=== PATIENT | male | born 1985 | race Hispanic/Latino ===

== ENCOUNTER 2024-08-16 02:22 | Inpatient (IN) | payer SELFPAY ==
[2024-08-16] MEDS ORDERED: FUROSEMIDE 40 MG/4 ML VIAL ONE ×2 (02:47→09:16)
[2024-08-16 03:04] LABS: Absolute Lymphocytes (CBC) 2.6 K/uL (0.7-4.9); Absolute Monocytes 0.4 K/uL (0.1-1.3); Absolute Neutrophil 2.4 K/uL (1.8-8.0); Basophils % 0.8 % (0-1.3); Eosinophils % 0.8 % (0-4.4); Hematocrit 40.5 % (39.6-49.0); Hemoglobin 13.8 g/dL (13.6-17.9); Lymphocytes % 47.6 % (15.3-44.8); MCH 29.7 pg (27.0-35.0); MCHC 34.2 g/dL (32.0-36.0); MCV 86.8 fL (80-100); Monocytes % 7.3 % (3.3-12.3); Neutrophils % 43.5 % (41.7-73.7); Nucleated Red Blood Cells % 0.1 % (0-0); Platelets 236 thou/uL (152-406); RBC Red Blood Cell Count 4.67 M/uL (4.33-5.43); Red Cell Distribution Width 13.8 % (12.1-15.2)
[2024-08-16 03:15] LABS: Albumin/Globulin Ratio 0.8 (1.1-1.8); Anion Gap 9.9 mEq/L (5.0-15.0); Bilirubin Direct 0.2 mg/dL (0-0.2); Bilirubin Indirect, Calculated 0.3 mg/dL (0.2-0.8); Bilirubin Total 0.5 mg/dL (0.2-1.0); Globulin 3.9 g/dL (2.3-3.5); Potassium 3.9 mEq/L (3.5-5.1); Protein, Total 6.9 g/dL (6.4-8.2)
[2024-08-16 03:34] LABS: Troponin High Sensitivity 76.4 pg/mL (<58.9)
--- NOTE | 2024-08-16 04:42 | ER ---
Nurse's Notes [facility] Name: Willie Bryson Age: 39 yrs Sex: Male : 1985 Arrival Date: 08/16/2024 Time: 02:22 Bed 24 Private MD: Diagnosis: CHF exacerbation;Elevated troponin Presentation: 08/16 02:40 Chief complaint: Patient states: I have been feeling short of breath and my legs have vc1 been swelling for the last 3 days. Coronavirus screen: Client denies travel out of the [place] in the last 14 days. At this time, the client does not indicate any symptoms associated with coronavirus-19. Ebola Screen: Patient negative for fever greater than or equal to 101.5 degrees Fahrenheit, and additional compatible Ebola Virus Disease symptoms Patient denies exposure to infectious person. Patient denies travel to an Ebola-affected area in the 21 days before illness onset. No symptoms or risks identified at this time. Initial Sepsis Screen: Does the patient meet any 2 criteria? No. Patient's initial sepsis screen is negative. Does the patient have a suspected source of infection? No. Patient's initial sepsis screen is negative. Risk Assessment: Do you want to hurt yourself or someone else? Patient reports no desire to harm self or others. Onset of symptoms was August 13, 2024. 02:40 Method Of Arrival: Ambulatory vc1 02:40 Acuity: DIAN 3 vc1 Triage Assessment: 02:45 General: Appears in no apparent distress. uncomfortable, Behavior is calm, cooperative, vc1 appropriate for age. Pain: Complains of pain in right leg and left leg Aggravated by repositioning, weight bearing, Also complains of shortness of breath. EENT: No deficits noted. No signs and/or symptoms were reported regarding the EENT system. Neuro: Level of Consciousness is awake, alert, obeys commands, Oriented to person, place, time, situation, Appropriate for age. Cardiovascular: Reports shortness of breath, Denies chest pain, Capillary refill < 3 seconds Patient's skin is warm and dry. Cardiovascular: Edema to bilateral legs, non pitting. Respiratory: Reports shortness of breath at rest Airway is patent Respiratory effort is even, unlabored, Respiratory pattern is regular, symmetrical, the patient has mild shortness of breath. GI: Abdomen is round non-distended. : No deficits noted. No signs and/or symptoms were reported regarding the genitourinary system. Derm: Skin is intact, is healthy with good turgor, Skin is dry, Skin is normal, Skin temperature is warm. Musculoskeletal: Circulation, motion, and sensation intact. Range of motion: intact in all extremities, Swelling present in right leg and left leg. Historical: - Allergies: 02:42 No Known Allergies; vc1 - Home Meds: 02:53 paroxetine HCl 20 mg oral tablet daily [Active]; insulin glargine 100 unit/mL (3 mL) vc1 Sub-Q Insulin Pen 10 units every evening for type 1 diabetes mellitus [Active]; metoprolol succinate 100 mg oral Tablet, Extended Release 24 hr 1.5 tabs daily [Active]; losartan 50 mg oral tablet [Active]; nitroglycerin 0.4 mg SL Tablet, Sublingual 1 tab every 5 to 15 minutes [Active]; - PMHx: 02:43 Congestive heart failure; diabetes mellitus; Hypertensive disorder; kd3 02:42 Hypertensive disorder; Diabetes mellitus; Congestive heart failure; vc1 - PSHx: 02:42 None; vc1 - Immunization history:: Adult Immunizations up to date, Client reports having NOT received the Covid vaccine. Flu vaccine is not up to date. - Infectious Disease History:: Denies. Denies. - Social history:: Smoking status: Patient/guardian denies using tobacco, the patient reports quitting approximately 1 years ago. Screenin:44 [facility] ED Fall Risk Assessment (Adult) History of falling in the last 3 months, kd3 including since admission No falls in past 3 months (0 pts) Confusion or Disorientation No (0 pts) Intoxicated or Sedated No (0 pts) Impaired Gait No (0 pts) Mobility Assist Device Used No (0 pt) Altered Elimination No (0 pt) Score/Fall Risk Level 0 - 2 = Low Risk Oriented to surroundings. Abuse screen: Denies threats or abuse. Denies injuries from another. Nutritional screening: No deficits noted. Tuberculosis screening: No symptoms or risk factors identified. Assessment: 02:43 General: Appears uncomfortable, Behavior is calm, cooperative. Pain: Complains of pain kd3 in chest. Neuro: Level of Consciousness is awake, alert, obeys commands, Oriented to person, place, time, situation. Cardiovascular: Patient's skin is warm and dry. Respiratory: Airway is patent Trachea midline Respiratory effort is even, unlabored, Respiratory pattern is regular, symmetrical. 03:15 General: Pt placed on 2 L nasal canula for comfort due to high anxiety rt SOB. Pt is 97 kd3 percent on RA. . 04:33 General: Provider is at the bedside attempting to speak to the patient. Patient is kd3 sitting up in the stretcher, eyes closed, respirations are even and unlabored, VSS, pt is groaning and currently not verbally responding. . Vital Signs: 02:40 BP 146 / 87; Pulse 107; Resp 20; Temp 97.8; Pulse Ox 98% ; Weight 108.86 kg; Height 5 vc1 ft. 11 in. ; 03:23 BP 138 / 105; Pulse 98; Resp 20; Pulse Ox 95% on 2 lpm NC; kd3 04:28 BP 154 / 99; Pulse 89; Resp 19; Pulse Ox 98% on 2 lpm NC; kd3 04:43 BP 127 / 85; Pulse 91; Resp 17; Pulse Ox 100% on 2 lpm NC; dd2 05:36 BP 137 / 97; Pulse 86; Resp 18; Pulse Ox 97% on 2 lpm NC; dd2 02:40 Body Mass Index 33.47 (108.86 kg, 180.34 cm) vc1 ED Course: 02:26 Patient arrived in ED. gm2 02:28 Sathish Aguirre MD is Attending Physician. rt 02:42 Triage completed. vc1 02:42 Jennifer Ocasio, RN is Primary Nurse. kd3 02:44 Arm band placed on left wrist. vc1 02:44 Initial lab(s) drawn, by id, sent to lab. EKG done, by ED staff, reviewed by Sathish Aguirre MD. Inserted saline lock: 20 gauge in right antecubital area, using aseptic technique. Blood collected. Flushed with 10 mL NS. 02:47 Patient has correct armband on for positive identification. Bed in low position. Call vc1 light in reach. Provided Education on: call light. administrative officer on. Pulse ox on. NIBP on. 02:50 Troponin HS Sent. kd3 02:50 NT PRO-BNP Sent. kd3 02:50 LFT's Sent. kd3 02:50 Basic Metabolic Panel Sent. kd3 02:50 CBC with Diff Sent. kd3 03:23 XRAY Chest (1 view) In Process Unspecified. EDMS 04:41 Marva Boothe MD is Hospitalizing Provider. rt 07:05 Primary Nurse role handed off by Jennifer Ocasio, MOE bd Administered Medications: 02:50 Drug: Furosemide IVP 40 mg IVP once; give over 2 minutes Route: IVP; Site: right kd3 antecubital; 05:44 Follow up: Response: No adverse reaction kd3 04:46 Drug: Aspirin PO 325 mg PO once Route: PO; dd2 05:44 Follow up: Response: No adverse reaction kd3 Medication: 02:48 VIS not applicable for this client. vc1 Outcome: 04:41 Decision to Hospitalize by Provider. rt 14:58 Patient left the ED. ll1 Signatures: Dispatcher [employer] EDMS Isabell Mason Lynsay, RN RN ll1 Jennifer Ocasio RN RN kd3 Suad Goodwin RN RN vc1 Sathish Aguirre MD MD rt Radha Johansen gm2 RAULITO BATISTA RN RN dd2 Corrections: (The following items were deleted from the chart) 04:31 04:29 General: kd3 kd3 04:33 03:15 General: Pt placed on 2 L nasal canula for comfort due to high anxiety rt SOB. . kd3 kd3
--- NOTE | 2024-08-16 04:42 | EDPHYS ---
Physician Documentation [facility] [place], [place] Name: Willie Bryson Age: 39 yrs Sex: Male : 1985 Arrival Date: 08/16/2024 Time: 02:22 Bed 24 Private MD: ED Physician Sathish Aguirre HPI: 08/16 03:02 This 39 yrs old Male presents to ER via Ambulatory with complaints of Leg Swelling, rt Feet Swelling. 03:02 Patient with history of congestive heart failure presents to the ED with dyspnea, rt worsening edema to the bilateral lower extremities. The patient had a recent admission to outside hospital for fluid, pneumonia. Left the hospital by 5 days ago, states that has been progressively worsening. He is not currently taking Lasix, has been sometime since he took Lasix. Denies other acute complaints at this time, symptoms are moderate in severity, no other aggravating or alleviating factors.. Historical: - Allergies: 02:42 No Known Allergies; vc1 - Home Meds: 02:53 paroxetine HCl 20 mg oral tablet daily [Active]; insulin glargine 100 unit/mL (3 mL) vc1 Sub-Q Insulin Pen 10 units every evening for type 1 diabetes mellitus [Active]; metoprolol succinate 100 mg oral Tablet, Extended Release 24 hr 1.5 tabs daily [Active]; losartan 50 mg oral tablet [Active]; nitroglycerin 0.4 mg SL Tablet, Sublingual 1 tab every 5 to 15 minutes [Active]; - PMHx: 02:43 Congestive heart failure; diabetes mellitus; Hypertensive disorder; kd3 02:42 Hypertensive disorder; Diabetes mellitus; Congestive heart failure; vc1 - PSHx: 02:42 None; vc1 - Immunization history:: Adult Immunizations up to date, Client reports having NOT received the Covid vaccine. Flu vaccine is not up to date. - Infectious Disease History:: Denies. Denies. - Social history:: Smoking status: Patient/guardian denies using tobacco, the patient reports quitting approximately 1 years ago. ROS: 03:03 Constitutional: Negative for fever, chills, and weight loss, Abdomen/GI: Negative for rt abdominal pain, nausea, vomiting, diarrhea, and constipation, Skin: Negative for injury, rash, and discoloration, Neuro: Negative for headache, weakness, numbness, tingling, and seizure, 03:03 Cardiovascular: Positive for edema, Negative for chest pain, 03:03 Respiratory: Positive for cough, shortness of breath, Exam: 03:03 Constitutional: This is a well developed, well nourished patient who is awake, alert, rt and in no acute distress. Head/Face: Normocephalic, atraumatic. Chest/axilla: Normal chest wall appearance and motion. Nontender with no deformity. No lesions are appreciated. Cardiovascular: Regular rate and rhythm with a normal S1 and S2. No gallops, murmurs, or rubs. Normal PMI, no JVD. No pulse deficits. Abdomen/GI: Soft, non-tender, with normal bowel sounds. No distension or tympany. No guarding or rebound. No evidence of tenderness throughout. Skin: Warm, dry with normal turgor. Normal color with no rashes, no lesions, and no evidence of cellulitis. Neuro: Awake and alert, GCS 15, oriented to person, place, time, and situation. Cranial nerves II-XII grossly intact. Motor strength 5/5 in all extremities. Sensory grossly intact. Cerebellar exam normal. Normal gait. 03:03 Respiratory: Bibasilar crackles, no respiratory distress, 03:03 Musculoskeletal/extremity: 2+ bilateral lower extremity edema. 03:04 ECG was reviewed by the Attending Physician. rt Vital Signs: 02:40 BP 146 / 87; Pulse 107; Resp 20; Temp 97.8; Pulse Ox 98% ; Weight 108.86 kg; Height 5 vc1 ft. 11 in. ; 03:23 BP 138 / 105; Pulse 98; Resp 20; Pulse Ox 95% on 2 lpm NC; kd3 04:28 BP 154 / 99; Pulse 89; Resp 19; Pulse Ox 98% on 2 lpm NC; kd3 04:43 BP 127 / 85; Pulse 91; Resp 17; Pulse Ox 100% on 2 lpm NC; dd2 05:36 BP 137 / 97; Pulse 86; Resp 18; Pulse Ox 97% on 2 lpm NC; dd2 02:40 Body Mass Index 33.47 (108.86 kg, 180.34 cm) vc1 MDM: 02:31 Medical Screening Exam initiated rt 04:49 Differential Diagnosis CHF, pneumonia, elevated troponin. Data reviewed: vital signs, rt nurses notes. Consideration of Admission/Observation Patient was admitted/placed on observation. Management of patient was discussed with the following: Hospitalist: Agrees to admit. I considered the following discharge prescriptions or medication management in the emergency department Medications were administered in the Emergency Department. See MAR. Independent interpretation of the following test(s) in the Emergency Department X-Ray: My interpretation is Pulmonary edema seen on my interpretation of x-ray images. Test considered but Not performed: CT: Low suspicion for pulmonary embolus, CT angiogram not indicated. Care significantly affected by the following chronic conditions: Congestive Heart Failure. Counseling: I had a detailed discussion with the patient and/or guardian regarding the historical points, exam findings, and any diagnostic results supporting the discharge/admit diagnosis, lab results, radiology results, the need for further work-up and treatment in the hospital. Response to treatment: the patient's symptoms have mildly improved after treatment. 04 02:42 Order name: Basic Metabolic Panel; Complete Time: 03:46 rt 08/16 02:42 Order name: CBC with Diff; Complete Time: 03:46 rt 08/16 02:42 Order name: LFT's; Complete Time: 03:46 rt 08/16 02:42 Order name: NT PRO-BNP; Complete Time: 03:46 rt 08/16 02:42 Order name: Troponin HS; Complete Time: 03:46 rt 08/16 06:00 Order name: Basic Metabolic Panel EDMS 08/16 06:00 Order name: C-Reactive Protein EDMS 08/16 06:00 Order name: CBC with Automated Diff EDMS 08/16 06:00 Order name: Magnesium EDMS 08/16 06:00 Order name: Troponin High Sensitivity EDMS 08/16 06:04 Order name: Urine Drug Screen EDMS 08/16 06:41 Order name: Glucose, Ancillary Testing EDMS 08/16 07:05 Order name: Basic Metabolic Panel EDMS 08/16 07:05 Order name: Magnesium EDMS 08/16 07:42 Order name: Glucose, Ancillary Testing EDMS 08/16 02:42 Order name: XRAY Chest (1 view) rt 08/16 06:00 Order name: Echo with Doppler EDMS 08/16 02:42 Order name: EKG; Complete Time: 02:43 rt 08/16 06:00 Order name: CONS Physician Consult EDMS 08/16 02:42 Order name: Cardiac monitoring; Complete Time: 02:43 rt 04 02:42 Order name: EKG - Nurse/Tech; Complete Time: 02:43 rt 04 02:42 Order name: IV Saline Lock; Complete Time: 02:43 rt 08/16 02:42 Order name: Labs collected and sent; Complete Time: 02:43 rt 08/16 02:42 Order name: O2 Per Protocol; Complete Time: 02:43 rt 08/16 02:42 Order name: O2 Sat Monitoring; Complete Time: 02:43 rt EC:04 Rate is 101 beats/min. Rhythm is regular, Sinus tachycardia with No ectopy. QRS [place] is rt Normal. [place] interval is normal. QRS interval is normal. QT interval is normal. No Q waves. T waves are Normal. No ST changes noted. Interpreted by me. Administered Medications: 02:50 Drug: Furosemide IVP 40 mg IVP once; give over 2 minutes Route: IVP; Site: right kd3 antecubital; 05:44 Follow up: Response: No adverse reaction kd3 04:46 Drug: Aspirin PO 325 mg PO once Route: PO; dd2 05:44 Follow up: Response: No adverse reaction kd3 Disposition Summary: 08/16/24 04:41 Hospitalization Ordered Notes: Hospitalization Status: Observation rt Provider: Marva Boothe rt Condition: Stable rt Problem: an acute exacerbation rt Symptoms: have improved rt Bed/Room Type: Standard rt Location: [facility] ER HOLD(08/16/24 05:07) rv1 Room Assignment: ERHOLD-(08/16/24 05:07) rv1 Diagnosis - CHF exacerbation rt - Elevated troponin rt Forms: - Medication Reconciliation Form rt - SBAR form rt - Leadership Thank You Letter rt Signatures: Dispatcher [employer] Jennifer Nichole RN RN kd3 Suad Goodwin RN RN vc1 Sathish Aguirre MD MD rt Maria T James rv1 RAULITO BATISTA RN RN dd2 Corrections: (The following items were deleted from the chart) 02:43 02:42 BASIC METABOLIC PANEL+C.LAB.BRZ ordered. EDMS EDMS 02:43 02:42 CBC+H.LAB.BRZ ordered. EDMS EDMS 02:43 02:42 HEPATIC FUNCTION+C.LAB.BRZ ordered. EDMS EDMS 02:43 02:42 PROBNP+C.LAB.BRZ ordered. EDMS EDMS 02:43 02:43 Troponin High Sensitivity+C.LAB.BRZ ordered. EDMS EDMS 05:07 04:41 Telemetry/MedSurg (observation) rt rv1 05:07 04:41 rt rv1
[2024-08-16] MEDS ORDERED: ASPIRIN 81 MG CHEWABLE TABLET ONE (04:46)
[2024-08-16] MEDS ORDERED: ONDANSETRON 4 MG/2 ML VIAL IV PRN (05:53)
--- NOTE | 2024-08-16 06:03 | P.HP ---
Patient History Date of Service: 08/16/24 History of Present Illness: This is a 39-year-old male with a past medical history of CHF, history of illicit drug use, diabetes, hypertension presenting with worsening shortness of breath for the last several days. He was recently discharged from the hospital for pneumonia. His is at bedside and relates most of the history. He has a LifeVest. His ejection fraction went down to 20 earlier this year. He has a 30+ year smoker. She states he still uses drugs occasionally including cocaine/methamphetamines. Allergies No Known Allergies Allergy (Unverified 08/16/24 05:11) Review of Systems 10-point ROS is otherwise unremarkable General: As per HPI Respiratory: Shortness of Breath Cardiovascular: Chest Pain Gastrointestinal: Unremarkable Genitourinary: Unremarkable Musculoskeletal: Unremarkable Integumentary: Unremarkable Neurological: Unremarkable Physical Examination - Physical Exam General: Alert HEENT: Normocephalic Neck: Supple Respiratory: Clear to auscultation bilaterally Cardiovascular: Edema Capillary refill: <2 Seconds Gastrointestinal: Normal bowel sounds Musculoskeletal: No clubbing Integumentary: No rashes Neurological: Normal gait Lymphatics: No axilla or inguinal lymphadenopathy - Studies Laboratory Data (last 24 hrs) 08/16/24 08/16/24 02:45 02:45 WBC 5.50 Hgb 13.8 Hct 40.5 Plt Count 236 Sodium 137 Potassium 3.9 BUN 9 Creatinine 0.95 Glucose 297 H Total Bilirubin 0.5 AST 54 H ALT 69 H Alkaline Phosphatase 118 H Assessment and Plan - Plan CHF exacerbation Elevated troponin History of illicit drug Type 2 diabetes with hyperglycemia Tobacco abuse Start Lasix, obtain echo, consult cardiology Trend troponin Low-sodium diet Obtain magnesium UDS pending DVT prophylaxis with Lovenox - Advance Directives Does patient have a Living Will: No Does patient have a Durable POA for Healthcare: No
--- NOTE | 2024-08-16 06:13 | RAD REPORT ---
PROCEDURE: XR Chest, 1 View CLINICAL INDICATION: The patient is 39 years old and is Male; Dyspnea. TECHNIQUE: Frontal view of the chest. COMPARISON: XR Chest 08/08/2024 and CTA Chest 03/05/2024. FINDINGS: LUNGS: Relatively low lung volumes bilaterally. Suspected artifactual prominence of the bilateral interstitial lung markings, secondary to un derpenetration and patient body habitus, with no dense focal consolidation. PLEURAL SPACE: No appreciable pleural effusion or pneumothorax. MEDIASTINUM: Stable prominence of the cardiomediastinal silhouette, likely exaggerated secondary to portable technique, lordotic positioning, and patient body habitus. BONES/JOINTS: No acute osseous abnormality. IMPRESSION: Suspected artifactual prominence of the bilateral interstitial lung markings, secondary to underpenet ration and patient body habitus, with no definite acute chest findings. Electronically signed by: Varun Wise MD 08/16/2024 03:50 AM CDT RP Due to temporary technical issues with the [employer]ACS/[employer] reporting system, reports are being jorge [email or web address] d by the in-house radiologist without review as a courtesy to ensure prompt reporting the interpreting radiologist is fully responsible for the content of the report. Transcribed Date/Time: 08/16/2024 6:13 AM
[2024-08-16 06:31] LABS: Absolute Basophils 0.1 K/uL (0-0.5); Absolute Lymphocytes (CBC) 2.4 K/uL (0.7-4.9); Absolute Monocytes 0.3 K/uL (0.1-1.3); Absolute Neutrophil 1.9 K/uL (1.8-8.0); Basophils % 1.2 % (0-1.3); Eosinophils % 0.9 % (0-4.4); Hematocrit 40.4 % (39.6-49.0); Hemoglobin 13.7 g/dL (13.6-17.9); MCH 29.4 pg (27.0-35.0); MCHC 33.9 g/dL (32.0-36.0); MCV 86.6 fL (80-100); MPV 8.6 fL (7.6-11.3); Monocytes % 7.2 % (3.3-12.3); Neutrophils % 40.7 % (41.7-73.7); Nucleated Red Blood Cells % 0.1 % (0-0); Platelets 272 thou/uL (152-406); RBC Red Blood Cell Count 4.67 M/uL (4.33-5.43); Red Cell Distribution Width 13.7 % (12.1-15.2)
[2024-08-16 06:52] VITALS: BMI 33.3
[2024-08-16 07:02] LABS: Anion Gap 8.5 mEq/L (5.0-15.0); Potassium 3.5 mEq/L (3.5-5.1)
[2024-08-16 07:05] LABS: Troponin High Sensitivity 71.8 pg/mL (<58.9)
[2024-08-16] MEDS: FUROSEMIDE 40 MG TABLET PO SCH (09:00)
[2024-08-16] MEDS: ENOXAPARIN 40 MG/0.4 ML SQ SCH (09:00)
[2024-08-16] MEDS: FUROSEMIDE 40 MG/4 ML VIAL IV ONE (09:12)
[2024-08-16] MEDS: FLU (Fluarix Triv) TS24-25(6MOS UP)/PF 45 MCG/0.5 ML Syringe IM ONE (10:00)
--- NOTE | 2024-08-16 10:29 | P.CNS ---
Date of Consult: 08/16/24 Chief Complaint: heart failure History of Present Illness: Patient with PMH of heart failure reduced EF, non ischemic, most likely drug abuse related, presented with worsening SOB, PEREZ and Lower extremities edema, denies any other cardiac symptoms. Allergies No Known Allergies Allergy (Unverified 08/16/24 05:11) Home medications list reviewed: Yes Home Medications: Insulin Glargine-Yfgn 10 units SQ BEDTIME 08/16/24 Losartan Potassium [Cozaar] 50 mg PO DAILY 08/16/24 Metoprolol Succinate [Toprol Xl] 1.5 tab PO DAILY 08/16/24 Nitroglycerin [Nitrostat] 0.4 mg SL PRN PRN 08/16/24 PARoxetine HCL [Paxil] 1 tab PO DAILY 08/16/24 Review of Systems 10-point ROS is otherwise unremarkable Physical Examination Temp Pulse Resp BP Pulse Ox 90 18 160/100 H 99 08/16/24 07:39 08/16/24 07:39 08/16/24 07:39 08/16/24 07:39 General: Alert, In no apparent distress HEENT: Atraumatic, PERRLA, Mucous membr. moist/pink, EOMI, Sclerae nonicteric Neck: Supple, 2+ carotid pulse no bruit, No LAD, Without JVD or thyroid abnormality Respiratory: Clear to auscultation bilaterally, Normal air movement Cardiovascular: Regular rate/rhythm, Normal S1 S2 Gastrointestinal: Normal bowel sounds, No tenderness Musculoskeletal: No tenderness Integumentary: No rashes Neurological: Normal gait, Normal speech, Normal tone, Normal affect Lymphatics: No axilla or inguinal lymphadenopathy Laboratory Data (last 24 hrs) 08/16/24 08/16/24 02:45 02:45 WBC 5.50 Hgb 13.8 Hct 40.5 Plt Count 236 Sodium 137 Potassium 3.9 BUN 9 Creatinine 0.95 Glucose 297 H Total Bilirubin 0.5 AST 54 H ALT 69 H Alkaline Phosphatase 118 H - Problems (1) Acute on chronic systolic (congestive) heart failure Current Visit: Yes Status: Acute Plan: lasix 40 mg IV BID Continue Toprol XL 100 mg daily continue Losartan 50 mg daily add Aldactone 25 mg daily if patient feels better and need to go home then prescribe above medications plus lasix 40 mg po BID for 1 week then continue lasix 40 mg daily patient got a life vest and he is just visiting so follow up with cardiology at his home town. (2) Type 2 CT (myocardial infarction) Current Visit: Yes Status: Acute Plan: patient had ischemia evaluation in [place] that was negative, troponin leak is mild, type 2 CT from HF. ASA 81 mg daily
--- NOTE | 2024-08-16 12:32 | EKG ---
Test Date: 2024-08-16 Test Time: 02:39:32 Band Bias Machine Operator: AFIA MEASUREMENT RESULTS: Intervals: Rate: 101 DC: 168 QRSD: 114 QT: 382 QTc: 495 [place]: P: 51 DC: 168 QRS: 26 T: 46 INTERPRETIVE STATEMENTS: Sinus tachycardia Possible Left atrial enlargement Borderline ECG No previous ECG available for comparison Electronically Signed On 08-16-24 12:31:59 CDT by Lito Gaitan
[2024-08-16] MEDS: METOPROLOL TAR 25 MG TAB PO ONE (12:45)
[2024-08-16] MEDS ORDERED: METOPROLOL TAR 25 MG TAB ONE (12:53)
--- NOTE | 2024-08-16 14:22 | P.DS ---
Admission Date: 08/16/24 Discharge Date: 08/16/24 Reason for Admission: heart failure Brief History of Present Illness: This is a 39-year-old male with a past medical history of CHF, history of illicit drug use, diabetes, hypertension presenting with worsening shortness of breath for the last several days. He was recently discharged from the hospital for pneumonia. His is at bedside and relates most of the history. He has a LifeVest. His ejection fraction went down to 20 earlier this year. He has a 30+ year smoker. She states he still uses drugs occasionally including cocaine/methamphetamines. General: Alert HEENT: Normocephalic Neck: Supple Respiratory: Clear to auscultation bilaterally Cardiovascular: Edema Capillary refill: <2 Seconds Gastrointestinal: Normal bowel sounds Musculoskeletal: No clubbing Integumentary: No rashes Neurological: Normal gait Lymphatics: No axilla or inguinal lymphadenopathy Hospital Course: This is a 39-year-old male with a past medical history of CHF, history of illicit drug use, diabetes, hypertension presenting with worsening shortness of breath for the last several days. He was recently discharged from the hospital for pneumonia. His is at bedside and relates most of the history. He has a LifeVest. His ejection fraction went down to 20 earlier this year. He has a 30+ year smoker. he states he still uses drugs occasionally including cocaine/methamphetamines. educated on cessation, seen by cardiology, stable to discharge home. Home medication refilled Assessment Acute on chronic heart failure patient seen by cardiology, follow up with [facility] in [place] Elevated troponin NSTEMI type II treated with as needed analgesics, diuretic Substance abuse educate on cessation Diabetes with hyperglycemia- resume home meds after discharge Continue home medicines as previously prescribed GOAL: Clear understanding of disease process INSTRUCTIONS: Physician Discharge Instructions: -Follow up with cardiology after discharge -Follow-up with PCP in 1 to 2 weeks -Please call Dr. Farias at [phone] if any questions regarding hospital stay -Please call nursing station at [phone] if any nursing or medication questions -Return to the emergency room if symptoms worsen Diet: ADA, low sodium Activity: Fall precautions <Gina Angel - Last Filed: 08/17/24 01:14> Admission Date: 08/16/24 Discharge Date: 08/16/24 Hospital Course: Patient was seen and examined. Events of the last 24 hours have been noted. Spoke with with [facility] regarding patient's clinical picture after evaluating and examining the patient independently. I performed a substantial part of the MDM during this patient's care today. I personally made or approved the documented management plan and acknowledge its risk of complications. I agree with the findings and documentation provided in the [facility]'s notes. <Terry Farias - Last Filed: 08/24/24 12:59> Disposition: ROUTINE DISCHARGE Discharge Condition: GOOD Vital Signs/Physical Exam: Temp Pulse Resp BP Pulse Ox 79 18 140/105 H 98 08/16/24 12:00 08/16/24 12:00 08/16/24 12:00 08/16/24 12:00 Laboratory Data at Discharge: WBC 4.70 thou/uL (4.3-10.9) 08/16/24 06:19 Hgb 13.7 g/dL (13.6-17.9) 08/16/24 06:19 Hct 40.4 % (39.6-49.0) 08/16/24 06:19 Plt Count 272 thou/uL (152-406) 08/16/24 06:19 Sodium Cancelled 08/16/24 Unknown Potassium Cancelled 08/16/24 Unknown BUN Cancelled 08/16/24 Unknown Creatinine Cancelled 08/16/24 Unknown Glucose Cancelled 08/16/24 Unknown Magnesium Cancelled 08/16/24 Unknown Total Bilirubin 0.5 mg/dL (0.2-1.0) 08/16/24 02:45 AST 54 U/L (15-37) H 08/16/24 02:45 ALT 69 U/L (16-61) H 08/16/24 02:45 Alkaline Phosphatase 118 U/L (45-117) H 08/16/24 02:45 <Gina Angel - Last Filed: 08/17/24 01:14> Vital Signs/Physical Exam: Temp Pulse Resp BP Pulse Ox 97.8 F 86 18 137/97 H 98 08/16/24 15:04 08/16/24 15:11 08/16/24 15:11 08/16/24 15:11 08/16/24 12:00 General: Alert, In no apparent distress, Oriented x3 Laboratory Data at Discharge: WBC 4.70 thou/uL (4.3-10.9) 08/16/24 06:19 Hgb 13.7 g/dL (13.6-17.9) 08/16/24 06:19 Hct 40.4 % (39.6-49.0) 08/16/24 06:19 Plt Count 272 thou/uL (152-406) 08/16/24 06:19 Sodium Cancelled 08/16/24 Unknown Potassium Cancelled 08/16/24 Unknown BUN Cancelled 08/16/24 Unknown Creatinine Cancelled 08/16/24 Unknown Glucose Cancelled 08/16/24 Unknown Magnesium Cancelled 08/16/24 Unknown Total Bilirubin 0.5 mg/dL (0.2-1.0) 08/16/24 02:45 AST 54 U/L (15-37) H 08/16/24 02:45 ALT 69 U/L (16-61) H 08/16/24 02:45 Alkaline Phosphatase 118 U/L (45-117) H 08/16/24 02:45 <Terry Farias - Last Filed: 08/24/24 12:59> Diet: AHA Activity: Fall precautions Time spent managing pt's care (in minutes): 45 <Gina Angel - Last Filed: 08/17/24 01:14> <Terry Farias - Last Filed: 08/24/24 12:59> Home Medications: Furosemide [Lasix*] 40 mg PO BIDL #40 tab 08/16/24 Insulin Glargine-Yfgn 10 units SQ BEDTIME 08/16/24 Losartan Potassium [Cozaar*] 50 mg PO DAILY 08/16/24 Metoprolol Succinate [Toprol Xl*] 1.5 tab PO DAILY 08/16/24 Nitroglycerin [Nitrostat*] 0.4 mg SL PRN PRN 08/16/24 PARoxetine HCL [Paxil] 1 tab PO DAILY 08/16/24 Potassium Chloride 10 meq PO DAILY #30 tab 08/16/24 Spironolactone [Aldactone] 25 mg PO DAILY #30 tab 08/16/24 New Medications: Spironolactone [Aldactone] 25 mg PO DAILY #30 tab Furosemide [Lasix*] 40 mg PO BIDL #40 tab Potassium Chloride 10 meq PO DAILY #30 tab Physician Discharge Instructions: -DC IV and DC home -Follow-up with PCP in 1 to 2 weeks -Follow-up with your [employer] BERTHA -Please call Dr. Farias at [phone] if any questions regarding hospital stay -Please call nursing station at [phone] if any nursing or medication questions -Return to the emergency room if symptoms worsen -Lasix 40mg twice daily for 2 weeks, then once daily Followup: OOT,OOT [Primary Care Provider] - Lito Gaitan MD [ACTIVE - CAN ADMIT] -
[2024-08-16 15:06] VITALS: TEMP 97.8
[2024-08-16 15:13] VITALS: BP 137/97; O2SAT 97
[2024-08-16] MEDS ORDERED: METOPROLOL TAR 25 MG TAB PO SCH (18:00)
== END 2024-08-16 14:59 | disposition home or self-care (01) | DRG 291 ==
LOC: ER 02:22 → ERHOLD 05:53
PROVIDERS: ADMIT Family Medicine; ATTEND Hospitalist
DX: I11.0 Hypertensive heart disease with heart failure (principal); I50.23 Acute on chronic systolic (congestive) heart failure; E11.65 Type 2 diabetes mellitus with hyperglycemia; I25.2 Old myocardial infarction; Z79.4 Long term (current) use of insulin; Z79.899 Other long term (current) drug therapy; Z28.310 Unvaccinated for COVID-19; Z87.891 Personal history of nicotine dependence; Z91.148 Patient's other noncompliance with medication regimen for other reason
CPT/HCPCS: 36415; 71045; 80048; 80076; 82947; 83735; 83880; 84484; 85025; 86141; 93005; 96374; 99285; J1940